=== PATIENT | female | born 1970 | race Two or more races ===

== ENCOUNTER 2017-10-27 09:13 | Outpatient (CLI) | payer OTHER | END 2017-10-27 09:19 | disposition home or self-care (01) | LOC: SONOGRAMA 09:13 | DX: E04.2 Nontoxic multinodular goiter (principal) ==

== ENCOUNTER 2020-08-23 23:49 | Emergency (ER) | payer OTHER ==
[~2020-08-23] VITALS: Ht 167.6 cm; Wt 65.3 kg
[2020-08-24] MEDS ORDERED: ZEBUTAL 50-3251 EACH PO ×2 (08:47→08:49)
[2020-08-24] MEDS ORDERED: ZITHROMAX500 MG PO (08:48)
== END 2020-08-24 09:26 | disposition home or self-care (01) ==
LOC: ER 23:49
DX: B34.9 Viral infection, unspecified (principal); G43.909 Migraine, unspecified, not intractable, without status migrainosus; R50.9 Fever, unspecified